=== PATIENT | male | born 1985 | race Caucasian/White ===

== ENCOUNTER 2021-11-16 22:40 | Emergency (ER) | payer MEDICAID ==
[~2021-11-16] VITALS: Ht 190.5 cm; Wt 175.0 kg
[2021-11-16 23:04] VITALS: BP 122/75
--- NOTE | 2021-11-17 03:30 | NUR ---
PT CALLED THE ER, WAS YELLING AT THE ESCALATOR INSTALLER OVER THE PHONE. I PICKED UP PHONE AND ATTEMPTED TO DETERMINE WHAT HAD UPSET THE PT. PATIENT WAS SPEAKING VERY RAPIDLY, USING FREQUENT OBSCENITIES. ATTEMPTS AT TRYING TO RECOGNIZE PT'S CAUSE FOR UPSET AND TO TRY TO CALM HIM WERE NOT SUCCESSFUL. PT CALLED CHARGE NURSE AND ALSO THE ESCALATOR INSTALLER "BITCH".
--- NOTE | 2021-11-17 03:33 | NUR ---
Pt called the ER from the waiting room and is upset because he has not been seen. Pt told me "that he is fucking coming for us and we will be sorry" and "that he makes a lot of money, that he is not a fucking person that doesn't have anything like some of these people".
== END 2021-11-17 06:11 | disposition left against medical advice (07) ==
LOC: ER 22:41
DX: R56.9 Unspecified convulsions (principal); Z53.21 Procedure and treatment not carried out due to patient leaving prior to being seen by health care provider

== ENCOUNTER 2023-10-27 12:16 | Emergency (ER) | payer MEDICAID ==
[~2023-10-27] VITALS: Ht 190.5 cm; Wt 81.4 kg
[2023-10-27 12:34] VITALS: BP 129/76; PULSE 79; RESP 18; O2SAT 98
[2023-10-27 14:46] LABS: BASOPHILS % (AUTO) 0.3 % (0-1); EOSINOPHILS # (AUTO) 0.1 X10'3 (0-0.9); EOSINOPHILS % (AUTO) 0.9 % (0-6); HEMOGLOBIN 15.9 g/dl (14.0-17.9); LYMPHOCYTES # (AUTO) 1.1 X10'3 (1.1-4.8); MEAN CORPUSCULAR HEMOGLOBIN 30.6 PG (27.0-31.0); MEAN CORPUSCULAR HGB CONC 33.9 g/dL (33.0-36.5); MEAN CORPUSCULAR VOLUME 90.5 FL (78-98); MONOCYTES # (AUTO) 0.6 X10'3 (0-0.9); MONOCYTES % (AUTO) 9.1 % (2-12); NEUTROPHILS % (AUTO) 73.7 % (42-75); PLATELET COUNT 174 X10'3 (140-440); RED BLOOD COUNT 5.19 X10'6 (4.70-6.10); RED CELL DISTRIBUTION WIDTH 13.5 % (11.5-14.5); WHITE BLOOD COUNT 6.8 X10'3 (4.5-11.0)
[2023-10-27 15:03] LABS: ALANINE AMINOTRANSFERASE 26 U/L (12-78); ALBUMIN 4.1 G/DL (3.4-5.0); ALBUMIN/GLOBULIN RATIO 1.1 (1.1-1.5); ALKALINE PHOSPHATASE 72 IU/L (46-116); ANION GAP 5 (8-16); ASPARTATE AMINO TRANSFERASE 17 U/L (10-37); BILIRUBIN,TOTAL 0.9 MG/DL (0.1-1.0); BLOOD UREA NITROGEN 21 MG/DL (7-18); CALCIUM 9.1 MG/DL (8.5-10.1); CHLORIDE 103 MMOL/L (99-107); CREATININE 0.75 MG/DL (0.60-1.10); GLUCOSE 86 MG/DL (70-104); POTASSIUM 3.7 MMOL/L (3.5-5.1); SODIUM 136 MMOL/L (135-145); TOTAL CARBON DIOXIDE 27.9 MMOL/L (24-32); TOTAL PROTEIN 7.9 G/DL (6.4-8.2); eCRCL 152 ML/MIN; eGFR > 90 ML/MIN
[2023-10-27] MEDS ORDERED: iohexol 300mg/ml 100ml inj. ONE (15:17)
[2023-10-27] MEDS ORDERED: CLIN-97 PO (17:45)
[2023-10-27 17:52] VITALS: TEMP 98.2
== END 2023-10-27 17:55 | disposition home or self-care (01) ==
LOC: ER 12:17
DX: R22.0 Localized swelling, mass and lump, head (principal); F17.200 Nicotine dependence, unspecified, uncomplicated
CPT/HCPCS: 36415; 70491; 80053; 85025; 99285; Q9967

== ENCOUNTER 2025-02-10 14:28 | Outpatient (CLI) | payer MEDICAID ==
[~2025-02-10 14:28] MED LIST: CLIN-224 PO; iohexol 300mg/ml 100ml inj. ONE
--- NOTE | 2025-02-10 16:19 | RADIOLOGY REPORT ---
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 Coronal and sagittal reformats were obtained. Radiation Dose Information: CTDI volume is 14.7 mGy. Dose-length product is 423 mGy*cm Comparison: CT CT NECK SOFT TISSUES on DOS: 10/27/23 FINDINGS: Parotid, pharmaceutical laboratory technician, parapharyngeal spaces preserved. Submandibular glands unremarkable. Subtle hypodense lesion within the left facial region soft tissues measuring 1.1 x 0.7 x 1.5 cm, previously 9 x 9 x 5 at the region of the external marker. Submandibular glands unremarkable. No submental lymphadenopathy left cervical jugulodigastric measuring up to 7 mm. Right cervical jugulodigastric lymph nodes measuring up to 8 mm. Subcentimeter bilateral posterior cervical triangle lymph nodes. 8 mm right thyroid nodule, unchanged. Nasopharynx, oropharynx, hypopharynx patent. Epiglottis and aryepiglottic folds unremarkable. No prevertebral / retropharyngeal edema. Moderate bilateral TMJ arthrosis. Moderate cervical degenerative disc disease. 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 IMPRESSION: In the region of the external marker in the left facial region, there is an ill- defined hypodense lesion measuring 1.5 x 0.7 cm, previously 0.9 x 0.5 cm within the subcutaneous tissues. 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 No definitive mandibular mass identified. 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 Subcentimeter cervical jugulodigastric, posterior cervical triangle lymph nodes. 8 mm right thyroid nodule, unchanged.
== END 2025-02-10 23:59 | disposition home or self-care (01) ==
LOC: RAD 14:28
PROVIDERS: ATTEND Otolaryngology
DX: E04.1 Nontoxic single thyroid nodule (principal); D49.89 Neoplasm of unspecified behavior of other specified sites; M50.30 Other cervical disc degeneration, unspecified cervical region; M26.643 Arthritis of bilateral temporomandibular joint; L98.9 Disorder of the skin and subcutaneous tissue, unspecified
CPT/HCPCS: 70491; Q9967

== ENCOUNTER 2025-02-23 14:48 | Outpatient (CLI) | payer MEDICAID ==
[~2025-02-23 14:48] MED LIST changes: -iohexol 300mg/ml 100ml inj. ONE
--- NOTE | 2025-02-23 17:05 | RADIOLOGY REPORT ---
PROCEDURE: MR MRI ORBITS FACE AND NECK INDICATION: LOCALIZED SWELLING left jaw, MASS AND LUMP, HEAD EXAM DATE: 02/23/2025 03:38 PM COMPARISON: None TECHNIQUE: MRI of the orbits without and with intravenous contrast. 15 cc of clariscan for use on postcontrast images FINDINGS: The orbits are normal in appearance The paranasal sinuses are pneumatized and clear There is a cystic structure external to the left masseter muscle measuring 1.3 by 0.8 cm. This is anterior to the left parotid gland. No masses are seen within the parotid or submandibular glands There are small nodes bilaterally in the level 1A, 1B, and 2 a lymph node chains Vocal cord symmetrical in size shape and position. No masses in the nasopharynx tonsillar pillars or tongue base. No destructive lesions of bone IMPRESSION: 1. 1.3 x 0.8 cm cystic mass external to the left masseter and anterior to the left parotid gland which is well-defined. By location this may represent a cyst of the left parotid duct which can be postinflammatory. A lesion of the facial nerve is considered less likely because of the cystic appearance
[2025-02-23] MEDS ORDERED: GADOTERATE MEGLUMINE 7.5 MMOL/15 ML VIAL IV ONE (19:46)
== END 2025-02-23 23:59 | disposition home or self-care (01) ==
LOC: MRI 14:48
PROVIDERS: ATTEND Otolaryngology
DX: K11.8 Other diseases of salivary glands (principal); R22.0 Localized swelling, mass and lump, head
CPT/HCPCS: 70543; A9575